=== PATIENT | male | born 1960 | race Caucasian/White ===

== ENCOUNTER 2016-07-15 10:35 | Observation (INO) ==
--- NOTE | 2016-07-15 10:49 | Emergency Department Note ---
Disposition Clinical Impression: Transient cerebral ischemia Qualifiers: Transient cerebral ischemia type: unspecified Qualified Code(s): G45.9 - Transient cerebral ischemic attack, unspecified Disposition: Admitted As Inpatient Condition: Good Time of Disposition: 12:25 Neuro HPI - General Chief Complaint: ED Neuro Symptoms/Deficit Stated Complaint: neuro symptoms Time Seen by Provider: 07/15/16 10:42 Source: family, EMS Mode of arrival: EMS Limitations: no limitations Nursing Notes Reviewed: Yes Vital Signs Reviewed: Yes - History of Present Illness HPI Narrative: 56-year-old who was at an outreach program and developed a right-sided facial weakness and some slurred speech. Symptoms have since resolved. Onset of Symptoms Date: 07/15/16 Onset of Symptoms Time: 09:00 Timing confirmed by: family member Location: speech, right face History of same: No Severity: now resolved Quality: weakness Symptoms Improving: Yes Improves with: time Worsens with: none On Anticoagulants: Yes Associated symptoms: Reports: denies other symptoms - Related Data Home Medications: Home Medications Medication Instructions Recorded Confirmed Glimepiride [Amaryl] 2 mg PO DAILY 07/15/16 07/15/16 Metformin HCl [Glucophage] 1,000 mg PO BID 07/15/16 07/15/16 Allergies/Adverse Reactions: Allergies Allergy/AdvReac Type Severity Reaction Status Date / Time No Known Allergies Allergy Verified 07/15/16 12:45 Constitutional: Denies: fever, chills, weakness, weight change Eyes: Denies: eye pain, eye discharge, vision change ENT ED: Denies: ear pain, throat pain, dental pain, hearing loss, epistaxis, congestion, dysphagia Cardiovascular: Denies: chest pain, palpitations, dyspnea on exertion, edema, syncope Respiratory: Denies: cough, dyspnea, wheezes, hemoptysis, stridor Gastrointestinal: Denies: abdominal pain, nausea, vomiting, diarrhea, constipation, hematemesis, melena, hematochezia Genitourinary: Denies: urgency, dysuria, frequency, hematuria Musculoskeletal: Denies: back pain, neck pain, arthralgia, myalgia Integumentary: Denies: rash, abrasion, lesions Neurological: Denies: headache, weakness, numbness, paresthesias, confusion, abnormal gait, vertigo Psychiatric: Denies: anxiety, depression, suicidal thoughts, homicidal thoughts , auditory hallucinations, visual hallucinations Endocrine: Denies: fatigue Hematological/Lymphatic: Denies: easy bleeding, easy bruising Allergic/Immunologic: Denies: facial swelling, urticaria Past Medical History - Past Medical History Medical history: Reports: diabetes, other Psychiatric history: Reports: other - Social History Smoking Status: Never smoker Smokeless Tobacco Status: No Alcohol use: Reports: none Drug use: Reports: none Physical Exam - General Limitations: no limitations General appearance: alert, in no apparent distress - Head Head exam: atraumatic, normocephalic, normal inspection - Eye Eye exam: Present: normal appearance, PERRL, EOMI - ENT ENT exam: normal exam, normal oropharynx, mucous membranes moist - Neck Neck exam: Present: normal inspection, full ROM, trachea midline - Chest Chest inspection: Present: normal inspection, symmetric chest wall rise - Respiratory Respiratory exam: Present: normal lung sounds bilaterally - Cardiovascular Cardiovascular exam: Present: regular rate, normal rhythm, normal heart sounds - Abdominal Exam Abdominal exam: Present: soft, Non-Tender. Absent: tenderness, distention, guarding, rebound, rigidity - Extremities Exam Extremities exam: Present: normal inspection, full ROM. Absent: tenderness, pedal edema - Expanded Lower Extremity Exam Neurovascular/Tendon exam: Absent: motor deficit, sensory deficit, tendon deficit Gait: not tested/not observed - Back Exam Back exam: Present: normal inspection, full ROM. Absent: tenderness - Neurological Exam Neurological exam: Present: alert, oriented X3. Absent: motor sensory deficit - Psychiatric Psychiatric exam: Present: normal affect, normal mood - Skin Skin exam: Present: warm, dry, intact, normal color Course Course Narrative: 56-year-old who developed slurred speech and facial weakness while at a [employer] program. Family picked him up and by the time he gets here his symptoms have resolved. It appears to have had symptoms of a TIA. - Consultations Consultation #1: Discussed with [facility] [employer] and admit. Time: 12:22 Consultation #2: Discussed with , it. Time: 12:34 Vital Signs Temperature 97.2 F L 07/15/16 10:38 Pulse Rate 107 07/15/16 10:38 Respiratory Rate 16 07/15/16 10:38 Blood Pressure 186/107 07/15/16 10:38 O2 Sat by Pulse Oximetry 97 07/15/16 10:38 Temperature 97.2 F L 01/10/17 10:38 Pulse Rate 105 07/15/16 11:53 Respiratory Rate 12 07/15/16 11:53 Blood Pressure 148/99 07/15/16 11:53 O2 Sat by Pulse Oximetry 98 07/15/16 11:53 Oxygen Delivery Oxygen Delivery Room Air Neuro Symptoms/Deficit - Lab Data Lab results reviewed: Yes I reviewed the patient's lab results. Result diagrams: 07/15/16 11:00 07/15/16 11:00 Lab Results 07/15/16 07/15/16 07/15/16 Range/Units 11:00 11:00 11:00 WBC 5.5 (4.3-11.1) K/mcL RBC 4.64 (4.19-5.50) M/mcL Hgb 13.7 (12.9-16.9) g/dL Hct 39.9 (37.5-50.1) % MCV 86.0 (83.0-100.0) fL MCH 29.5 (28.0-33.3) pg MCHC 34.3 (31.6-35.5) g/dL RDW 12.9 (11.5-14.5) % Plt Count 125 L (140-400) K/mcL MPV 10.3 (9.4-12.4) fL Immature Gran % 0.5 (0-4) % Seg Neutrophils % 71.4 % Lymphocytes % 20.6 % Monocytes % 5.8 % Eosinophils % 1.3 % Basophils % 0.4 % Neutrophils # 3.9 (1.6-8.9) K/mcL Lymphocytes # 1.1 (0.6-4.6) K/mcL Monocytes # 0.3 (0.0-1.3) K/mcL Eosinophils # 0.1 (0.0-0.6) K/mcL Basophils # 0.0 (0.0-0.2) K/mcL PT 11.4 (9.4-12.1) Seconds INR 1.1 APTT 31.4 (26.0-36.0) Seconds Sodium 138 (136-145) mEq/L Potassium 4.5 (3.5-4.5) mEq/L Chloride 109 (98-109) mEq/L Carbon Dioxide 16 L (19-29) mEq/L BUN 20 (8-26) mg/dL Creatinine 1.26 H (0.72-1.25) mg/dL Est GFR ( Amer) > 60 (> 60) Est GFR (Non-Af Amer) 59 L (> 60) BUN/Creatinine Ratio 16 (6-26) Glucose 78 (70-99) mg/dL Calculated Osmolality 287 (280-300) Calcium 9.5 (8.6-10.8) mg/dL Troponin I (0-0.03) ng/mL 07/15/16 Range/Units 11:00 WBC (4.3-11.1) K/mcL RBC (4.19-5.50) M/mcL Hgb (12.9-16.9) g/dL Hct (37.5-50.1) % MCV (83.0-100.0) fL MCH (28.0-33.3) pg MCHC (31.6-35.5) g/dL RDW (11.5-14.5) % Plt Count (140-400) K/mcL MPV (9.4-12.4) fL Immature Gran % (0-4) % Seg Neutrophils % % Lymphocytes % % Monocytes % % Eosinophils % % Basophils % % Neutrophils # (1.6-8.9) K/mcL Lymphocytes # (0.6-4.6) K/mcL Monocytes # (0.0-1.3) K/mcL Eosinophils # (0.0-0.6) K/mcL Basophils # (0.0-0.2) K/mcL PT (9.4-12.1) Seconds INR APTT (26.0-36.0) Seconds Sodium (136-145) mEq/L Potassium (3.5-4.5) mEq/L Chloride (98-109) mEq/L Carbon Dioxide (19-29) mEq/L BUN (8-26) mg/dL Creatinine (0.72-1.25) mg/dL Est GFR ( Amer) (> 60) Est GFR (Non-Af Amer) (> 60) BUN/Creatinine Ratio (6-26) Glucose (70-99) mg/dL Calculated Osmolality (280-300) Calcium (8.6-10.8) mg/dL Troponin I 0.00 (0-0.03) ng/mL - Radiology Data Radiology results reviewed: Yes I reviewed the patient's radiology results. Chest X-Ray 07/15/16 10:42 IMPRESSION: Normal chest. D/ / 07/15/2016 11:03:28 Mukund Quispe MD / [email or web address] Interpreting Provider: Mukund Quispe MD Head CT 07/15/16 10:43 IMPRESSION: No acute intracranial abnormality. Acute or chronic right mastoid disease D/ / Eulogio Huff MD / Eulogio Huff MD Interpreting Provider: Eulogio Huff MD - EKG Data EKG attestation: Yes I reviewed and interpreted this EKG. EKG shows normal: sinus rhythm Rate: normal Rhythm: NSR Interpretation: nonspecific ST-T wave changes NIH Stroke Scale - Level of Consciousness LOC: Alert - LOC Questions LOC Questions: Answers both correctly - LOC Commands LOC Commands: Performs both correctly - Best Gaze Best Gaze: Normal - Visual Visual: No visual loss - Facial Palsy Facial Palsy: Normal - Motor Arms Motor Arm-Left: No drift for 10 seconds Motor Arm-Right: No drift for 10 seconds - Motor Legs Motor Leg-Left: No drift for 5 seconds Motor Leg-Right: No drift for 5 seconds - Limb Ataxia Limb Ataxia: Normal, No Ataxia - Sensory Sensory: Normal - Best Language Best Language: No aphasia - Dysarthria Dysarthria: Normal - Extinction and Inattention Extinction and Inattention: Normal - NIHSS Total Score NIHSS Total Score: 0 TPA Checklist - Eligibilty for IV tPA 1. LKW equal to or less than 4.5 hours be before treatment: Yes 2. Clinical diagnosis of ischemic stroke causing deficit: No - LKW: 3-4.5 hrs Add. Contraindications Patient/family understanding: The patient/family members have been counseled and understood the risk, benefit , and alternatives of treatment.
[2016-07-15 11:08] LABS: Basophils % 0.4 %; Eosinophils # 0.1 K/mcL (0.0-0.6); Eosinophils % 1.3 %; Hematocrit 39.9 % (37.5-50.1); Hemoglobin 13.7 g/dL (12.9-16.9); Immature Granulocytes % 0.5 % (0-4); Lymphocytes # 1.1 K/mcL (0.6-4.6); Lymphocytes % 20.6 %; Mean Corpuscular HGB Conc 34.3 g/dL (31.6-35.5); Mean Corpuscular Hemoglobin 29.5 pg (28.0-33.3); Mean Platelet Volume 10.3 fL (9.4-12.4); Monocytes # 0.3 K/mcL (0.0-1.3); Monocytes % 5.8 %; Neutrophils # 3.9 K/mcL (1.6-8.9); Platelet Count 125 K/mcL (140-400); Red Blood Count 4.64 M/mcL (4.19-5.50); Red Cell Distribution Width 12.9 % (11.5-14.5); Segmented Neutrophils % 71.4 %
[2016-07-15 11:12] LABS: INR 1.1; Prothrombin Time 11.4 Seconds (9.4-12.1)
[2016-07-15 11:15] LABS: Activated Partial Thrombo Time 31.4 Seconds (26.0-36.0)
[2016-07-15 11:20] LABS: BUN/Creatinine Ratio 16 (6-26); Blood Urea Nitrogen 20 mg/dL (8-26); Calcium 9.5 mg/dL (8.6-10.8); Carbon Dioxide 16 mEq/L (19-29); Chloride 109 mEq/L (98-109); Glucose 78 mg/dL (70-99); Osmolality,Calculated 287 (280-300); Potassium 4.5 mEq/L (3.5-4.5); Sodium 138 mEq/L (136-145); eGFR For African Americans > 60 (> 60); eGFR For Non-African Americans 59 (> 60)
[2016-07-15] MEDS ORDERED: Aspirin 81 MG TAB.CHEW PO STA (12:20)
--- NOTE | 2016-07-15 13:28 | Internal Med History&Physical ---
Date of Encounter: 07/15/16 Time of Encounter: 13:10 Assessment and Plan (1) Transient cerebral ischemia Current visit: Yes Status: Acute MRI Aspirin 81mg po daily Lipitor 40mg po daily ECHO Carotid Dopplers Fall Precautions NIHSS q [address] appraiser Qualifiers: Transient cerebral ischemia type: unspecified Qualified Code(s): G45.9 - Transient cerebral ischemic attack, unspecified (2) Hypertensive urgency Current visit: Yes Status: Acute Family denies past history of hypertension, pt takes no medications for HTN BP trends high throughout ED visit Hydralazine 10mg po q 4-6h prn to achieve systolic BP < 180mgHg VS q4-6h (3) Diabetes mellitus Current visit: Yes Status: Chronic Pt with Type II DM, treated with oral medications. Family denies complications or symptoms of hypo/hyperglycemia. ADA Diet Sliding Scale insulin coverage Accucheck AC/HS Qualifiers: Diabetes mellitus type: type 2 Diabetes mellitus complication status: without complication Diabetes mellitus fdc insulin use: without intermodal dispatcher use Qualified Code(s): E11.9 - Type 2 diabetes mellitus without complications Internal Medicine - H&P: HPI Chief complaint: Neuro symptoms Admitted From: Home Plans for Post Hospital Care: Home History of present illness: Mr. Schmidt is a 56 year old male who presents to ED from adult workshop with c/o L facial droop and slurred speech while there. Witnesses to episode state that pt had L facial droop and that speech was slurred prior to EMS arrival. Per family, pt was back to baseline for him on their arrival, and remains at his normal during exam. Pt denies [place], blurred vision, chest pain, or fall/injury at time of incident. Family at , none present at time of episode, but states that they were told of above symptoms and deny history of same. Past Med Surg Social Fam HX - Past Medical History Medical history: diabetes, other Psychiatric history: other - Social History Smoking Status: Never smoker Smokeless Tobacco Status: No Alcohol use: none Drug use: none Internal Medicine - H&P: Meds Metformin HCl [Glucophage] 1,000 mg PO BID 07/15/16 [History] RX: Glimepiride [Amaryl] 2 mg PO DAILY 07/15/16 [History] Allergies No Known Allergies Allergy (Verified 07/15/16 12:45) All Systems PM: A 10-system review of systems was performed and is negative for pertinent findings except as documented above in the HPI. Review of systems: Due to pt's normal mental status, some information obtained from family who is familiar with pt. Pt answers no to most questions and does not answer questions appropriately, instead talks about his stuffed horse Trigger. - Constitutional Constitutional: no weakness - EENT Ears: no decreased hearing, no ear pain Nose, mouth and throat: no mouth pain - Cardiovascular Cardiovascular ROS IM: no chest pain, no edema - Respiratory Respiratory: no cough, no chest congestion - Gastrointestinal Gastrointestinal: no abdominal pain, no nausea, no vomiting - Musculoskeletal Musculoskeletal ROS IM: no neck pain - Integumentary Integumentary IM: no new lesions, no rash, no unusual bruising - Neurological Neurological ROS: abnormal speech, no dizziness, no headache(s) - Constitutional Vitals: Temp Pulse Resp BP Pulse Ox 97.2 F L 105 12 148/99 98 07/15/16 10:38 07/15/16 11:53 07/15/16 11:53 07/15/16 11:53 07/15/16 11:53 General appearance: Present: A&O X 2, pleasant, no acute distress Exam: Pt alert, oriented to name only. States that he was at "school" prior to arrival. - Head Head exam: Present: normal inspection - Eye Eye exam: Present: PERRL - ENT ENT exam: Present: mucous membranes moist - Neck Neck exam general surgery: Present: full ROM, trachea midline - Respiratory Respiratory exam: Absent: rales, rhonchi, wheezes - Cardiovascular Cardiovascular exam: Present: tachycardia. Absent: diastolic murmur, JVD Additional comments: Pt on right of way appraiser ,NSR. - GI/Abdominal GI/Abdominal exam: Present: firm, normal bowel sounds, soft. Absent: tenderness - Extremities Exam Extremities exam: Present: normal inspection, radial pulses palpable and symetrical. Absent: pedal edema - Neurological Exam Neurological exam: Present: alert, normal gait, strengths equal and symetr throughout, facial droop Additional comments: Slight L facial droop noted at mouth. Pt follows commands and is able to stand with assistance from bed, gait steady. - Skin Skin exam: Present: intact, normal color, warm. Absent: diaphoretic Internal Med - H&P Results - Labs CBC & Chem 7: 07/15/16 11:00 07/15/16 11:00
[2016-07-15] MEDS ORDERED: Dextrose Gel 15 GM PO PRN ×2 (14:13)
[2016-07-15] MEDS ORDERED: *HR* Dextrose 50 % in Water (Syg) 50 ML SYRINGE IVP PRN (14:13)
[2016-07-15] MEDS ORDERED: D5% in Water 1,000 ML IV PRN (14:13)
[2016-07-15] MEDS ORDERED: hydrALAZINE 10 MG TABLET PO PRN (14:19)
[2016-07-15] MEDS: Insulin LISPRO 300 UNITS/3 ML VIAL SQ SCH (17:37)
[2016-07-15] MEDS ORDERED: Insulin LISPRO 300 UNITS/3 ML VIAL SQ SCH (21:00)
[2016-07-16 04:59] LABS: Basophils % 0.3 %; Eosinophils # 0.1 K/mcL (0.0-0.6); Eosinophils % 1.7 %; Hematocrit 39.4 % (37.5-50.1); Hemoglobin 13.5 g/dL (12.9-16.9); Immature Granulocytes % 0.5 % (0-4); Lymphocytes # 1.8 K/mcL (0.6-4.6); Lymphocytes % 27.5 %; Mean Corpuscular HGB Conc 34.3 g/dL (31.6-35.5); Mean Corpuscular Hemoglobin 29.9 pg (28.0-33.3); Mean Corpuscular Volume 87.4 fL (83.0-100.0); Mean Platelet Volume 10.8 fL (9.4-12.4); Monocytes # 0.5 K/mcL (0.0-1.3); Monocytes % 8.2 %; Platelet Count 150 K/mcL (140-400); Red Blood Count 4.51 M/mcL (4.19-5.50); Red Cell Distribution Width 12.8 % (11.5-14.5); Segmented Neutrophils % 61.8 %
[2016-07-16 05:15] LABS: Alanine Aminotransferase 25 Units/L (0-55); Albumin 3.9 g/dL (3.5-5.0); Albumin/Globulin Ratio 1.2 (1.1-2.2); Alkaline Phosphatase 60 Units/L (38-126); Aspartate Amino Transferase 18 Units/L (5-34); BUN/Creatinine Ratio 17 (6-26); Bilirubin,Direct 0.2 mg/dL (0.0-0.5); Bilirubin,Indirect 0.5 mg/dL (0.0-1.2); Bilirubin,Total 0.7 mg/dL (0.2-1.2); Blood Urea Nitrogen 22 mg/dL (8-26); Calcium 9.7 mg/dL (8.6-10.8); Carbon Dioxide 22 mEq/L (19-29); Chloride 108 mEq/L (98-109); Globulin 3.3 g/dL (2.4-3.5); Glucose 119 mg/dL (70-99); Osmolality,Calculated 294 (280-300); Potassium 4.2 mEq/L (3.5-4.5); Sodium 140 mEq/L (136-145); Total Protein 7.2 g/dL (6.0-8.3); eGFR For African Americans > 60 (> 60); eGFR For Non-African Americans 57 (> 60)
[2016-07-16 07:39] VITALS: BP 132/88
[2016-07-16] MEDS: Insulin LISPRO 300 UNITS/3 ML VIAL SQ SCH ×2 (07:44→12:34)
[2016-07-16] MEDS ORDERED: Aspirin 81 MG TAB.CHEW PO SCH (09:00)
--- NOTE | 2016-07-16 15:26 | ECHO - Doppler Report ---
Echocardiogram Name: Ag Schmidt Date of Study: 07/16/2016 Date: 1960 Ht: 72.0 in Medical Record#: [id number] Age: 56 Wt: 230.0 lb Gender: Male BSA: 2.26 Order #: [id number] Location: [facility] Room #: [id number] Reading Physician: Gauri Linares DO Fishing Instructor: Fazal Panda RN Ordering Physician: Jazlyn Collado CNP Primary Physician: Abbe Mahoney DO Indications: Transient Ischemic Attack Impressions: LVEF 60%. Mild concentric hypertrophy of the left ventricle. There is evidence of mild diastolic dysfunction of the left ventricle. Normal right ventricular size and function. Mild mitral regurgitation. No pulmonary hypertension. There is no evidence of a PFO with agitated saline contrast. Left Ventricular Wall Motion: Rest Echo Findings All wall segments showed normal motion. Findings: Study Quality * Technically sub-optimal due to body habitus. ECG Findings * Normal sinus rhythm. Left Ventricle * LVEF 60%. * Mild concentric left ventricular hypertrophy. * Mild left ventricular diastolic dysfunction. Aortic Valve * Aortic valve not well visualized. * No aortic stenosis. * Trace aortic regurgitation. Mitral Valve * Mildly calcified mitral valve leaflets. * No mitral stenosis. * Mild mitral annular calcification * Mild mitral regurgitation. Tricuspid Valve * Tricuspid valve not well visualized. * Trace tricuspid regurgitation. Pulmonic Valve * Pulmonic valve is not well visualized. * No pulmonic stenosis. * No pulmonic regurgitation. Pulmonary Artery * Pulmonary artery not well visualized. Right Ventricle * Normal right ventricular structure and function. Left Atrium * Normal left atrial size. Right Atrium * Normal right atrial size. IVC * The IVC is not well evaluated. Pericardium * There is no pericardial effusion present. Interatrial Septum * No evidence of PFO with agitated saline contrast. Aorta * Normally sized aortic root. History Contrast: Agitated saline 20 ml. Measurements: BP: 134/ 82 2D Normal Values IVSd: 1.30 cm 0.6 - 1.0 cm LVIDd: 3.90 cm 3.7 - 5.6 cm LVPWd: 1.30 cm 0.6 - 1.1 cm LVIDs: 2.30 cm 1.5 - 3.6 cm LA: 3.90 cm 2.0 - 4.0cm %FS: 41.00 cm >25 % LVOT Diam: 2.00 cm LA volume: 63 Mitral Valve Peak E:.80 m/sec Peak A:.82 m/sec E/A Ratio:1 Peak E' Lat Larry:9.85 cm/s Peak E' Med Larry:6.24 cm/s E/E' Lat Ratio:8.1 E/E' Med Ratio:12.8 Aortic Valve AI pressure Half-time: 456.00 msec Tricuspid Valve TV Regurg Peak Grad: 26.00mmHg TV Regurg Peak Larry: 2.54m/sec Updated by Gauri Linares on 07/16/2016 3:20:29 PM electronically signed on 07/16/2016 3:21:00 PM with status of Final Wall Motion Mc: 1=Normal, 2=Hypokinesis, 3=Akinesis, 4=Dyskinesis, 5=Aneurysmal, 6=Hyperkinetic, X=Not Visualized (Blank)=Missing
--- NOTE | 2016-07-16 15:34 | Discharge Summary ---
Date of Encounter: 07/16/16 Time of Encounter: 13:00 - Discharge Diagnosis (1) Transient cerebral ischemia Priority: Primary Status: Acute Comments: Asymptomatic on day of discharge. Chest x-ray negative. Head CT negative. Brain MRI negative. Echocardiogram unremarkable. Hypertensive urgency resolved. Follow-up outpatient. Qualifiers: Transient cerebral ischemia type: unspecified Qualified Code(s): G45.9 - Transient cerebral ischemic attack, unspecified (2) Hypertensive urgency Priority: Primary Status: Resolved Comments: Patient does not have a history of hypertension according to his family. Metoprolol added to his regimen, normotensive on day of discharge. Recommended the blood pressure checks at home and follow up outpatient. (3) Diabetes mellitus Priority: Secondary Status: Chronic Comments: Controlled with recent A1c of 5.8%. Recommend continued follow up outpatient. Qualifiers: Diabetes mellitus type: type 2 Diabetes mellitus complication status: without complication Diabetes mellitus alf insulin use: without alf use Qualified Code(s): E11.9 - Type 2 diabetes mellitus without complications (4) Cognitive developmental delay Priority: Secondary Status: Chronic Comments: Consistent with his baseline. Follow-up outpatient. Substantial familial support - Discharge Medications Prescriptions: Aspirin 81 mg PO DAILY #30 tab.chew Metoprolol [Lopressor] 25 mg PO BID #60 tablet Home Medications: Glimepiride [Amaryl] 2 mg PO DAILY 07/15/16 [History] Metformin HCl [Glucophage] 1,000 mg PO BID 07/15/16 [History] Aspirin 81 mg PO DAILY #30 tab.chew 07/16/16 [Rx] Metoprolol [Lopressor] 25 mg PO BID #60 tablet 07/16/16 [Rx] Allergies/Adverse Reactions: Allergies No Known Allergies Allergy (Verified 07/15/16 12:45) Procedures/tests Complete & Pending: Procedures Performed prior 72 hours Category Date Time Status MR head/brain wo con [MR] Routine MRI 07/15/16 14:10 Completed ECG 12 lead ECG [ECG] Stat Y 07/15/16 13:24 Ordered EV echocardiogram Routine Y 07/16/16 14:31 Completed Date of admission: 07/15/16 13:20 Primary care physician: Kvng Mahoney Consults: 07/15/16 15:37 Consult to Museum Librarian [CONS] Routine Reason for SW Consult: D/C planning for Home health 07/16/16 08:28 Consult to Occupational Therapy [CONS] Routine Comment: Evaluate, develop and implement POC Consult to Physical Therapy [CONS] Routine Comment: Evaluate, develop and implement POC Discharging clinician: Estefany Tan Anticipated date of discharge: 07/16/16 - Patient Status Disposition: Home, Self-Care Condition: Good Functional capacity at discharge: independent ambulation Overall status at discharge: patient is back to baseline - Discharge Instructions Follow Up With: Kvng Mahoney DO [Primary Care Provider] - Additional Instructions: Follow-up with primary care provider in one to 2 weeks, check blood pressure daily and keep a log - Diet and Activity Activity: increase activity as tolerated Diet: diabetic diet, low fat, low cholesterol, low salt diet Hospital course: Mr. Schmidt is a 56 year old male with past medical history of developmental delay and diabetes. Patient presented to the emergency department from an adult daycare chief complaint of left-sided facial drooping and slurred speech. Patient was back to his baseline prior to arrival at the emergency department. Patient denied headache, blurred vision, chest pain, fall or injury at the time of the incident. Workup in the emergency department unremarkable except for accelerated hypertension with an initial blood pressure of 186/107. Patient does not have a history of hypertension. Patient was admitted to the hospitalist service for further evaluation and management. Chest x-ray negative. Head CT negative. Brain MRI negative for acute processes. Echocardiogram unremarkable with ejection fraction of 60%. Patient remained asymptomatic and back at his baseline throughout this admission. He was started on metoprolol for his blood pressure and he was normotensive on day of discharge. Likely diagnosis TIA with resolution. Recommend daily blood pressure checks at home and following up outpatient. He was discharged home in stable condition. ITS Impressions Chest X-Ray 07/15/16 10:42 IMPRESSION: Normal chest. D/ / 07/15/2016 11:03:28 Mukund Quispe MD / dayna Interpreting Provider: Mukund Quispe MD Head CT 07/15/16 10:43 IMPRESSION: No acute intracranial abnormality. Acute or chronic right mastoid disease D/ / Eulogio Huff MD / Eulogio Huff MD Interpreting Provider: Eulogio Huff MD Brain MRI 07/15/16 14:10 IMPRESSION: No acute infarct. D/ / Gerardo Chaparro MD / Gerardo Chaparro MD Interpreting Provider: Gerardo Chaparro MD Echocardiogram impressions: LVEF 60%. Moderate concentric left ventricular hypertrophy. There is evidence of mild diastolic dysfunction of the left ventricle. Normal right ventricular size and function. Mild mitral regurgitation. No pulmonary hypertension. There is no evidence of PFO with agitated saline contrast. - Time Spent with Patient Total time spent providing and/or coordinating discharge services: - Constitutional Vitals: Temp Pulse Resp BP Pulse Ox 97.5 F L 79 16 132/88 99 07/16/16 07:37 07/16/16 07:37 07/16/16 07:37 07/16/16 07:37 07/16/16 07:37 General appearance: Present: A&O X 2, pleasant, no acute distress, answers questions appropriately (Simple yes or no questions) - Head Head exam: Present: atraumatic, normocephalic - Eye Eye exam: Present: PERRL, conjuntiva pink, sclera anicteric Pupils: Present: PERRL - Neck Neck exam general surgery: Present: supple, trachea midline. Absent: lymphadenopathy - Respiratory Respiratory exam: Present: CTAB. Absent: accessory muscle use, rales, respiratory distress, rhonchi, wheezes - Cardiovascular Cardiovascular exam: Present: RRR, +S1, +S2. Absent: diastolic murmur, gallop, rubs, systolic murmur - GI/Abdominal GI/Abdominal exam: Present: normal bowel sounds, soft, no peritoneal signs. Absent: distended, tenderness - Extremities Exam Extremities exam: Present: warm, radial pulses palpable and symetrical. Absent : calf tenderness, cyanotic, pedal edema - Neurological Exam Neurological exam: Present: alert, CN II-XII intact, normal gait, no focal deficits, strengths equal and symetr throughout. Absent: pronater drift, facial droop, speech deficit - Skin Skin exam: Present: dry, intact, normal color, warm
== END 2016-07-16 16:53 | disposition home or self-care (01) ==
LOC: EMEROO 10:35 → 3BNU 10:35
PROVIDERS: ADMIT Nurse Practitioner Family; ATTEND Nurse Practitioner Family

== ENCOUNTER 2020-12-07 12:14 | Inpatient (IN) ==
[2020-12-07] MEDS ORDERED: Dextrose Gel 15 GM/37.5 ML TUBE PO PRN ×2 (15:47)
[2020-12-07] MEDS ORDERED: D5% in Water 1,000 ML IVC PRN (15:47)
[2020-12-07] MEDS ORDERED: *HR* Dextrose 50 % in Water (Vial) 50 ML VIAL IVP PRN (15:47)
[2020-12-07] MEDS ORDERED: Naloxone 0.4 MG/ML INJ IVP PRN (15:57)
[2020-12-07] MEDS ORDERED: Ondansetron 4 MG/2 ML VIAL IVP PRN (15:57)
[2020-12-07 16:56] LABS: Alanine Aminotransferase 734 Units/L (7-52); Albumin 3.9 g/dL (3.5-5.7); Albumin/Globulin Ratio 1.5 (1.1-2.2); Alkaline Phosphatase 253 Units/L (34-104); Aspartate Amino Transferase 510 Units/L (13-39); BUN/Creatinine Ratio 19 (6-26); Bilirubin,Total 2.1 mg/dL (0.3-1.0); Blood Urea Nitrogen 27 mg/dL (8-23); Calcium 9.3 mg/dL (8.6-10.3); Carbon Dioxide 23 mEq/L (23-29); Chloride 106 mEq/L (98-107); Globulin 2.6 g/dL (2.4-3.5); Glucose 172 mg/dL (70-105); Osmolality,Calculated 293 (280-300); Potassium 4.5 mEq/L (3.5-5.1); Sodium 137 mEq/L (136-145); Total Protein 6.5 g/dL (6.4-8.9); eGFR For African Americans > 60 (> 60); eGFR For Non-African Americans 50 (> 60)
[2020-12-07] MEDS: Insulin LISPRO 300 UNITS/3 ML VIAL SUBQ SCH ×2 (18:32→20:12)
[2020-12-07] MEDS: Piperacillin/Tazobactam 3.375 GM in 0.9 % Sodium Chloride Mini Bag 100 ML IVPB SCH ×2 (18:32→23:41)
[2020-12-07] MEDS: 0.9 % Sodium Chloride 1,000 ML IVC SCH (18:34)
[2020-12-08] MEDS: 0.9 % Sodium Chloride 1,000 ML IVC SCH (04:45)
[2020-12-08] MEDS: Insulin LISPRO 300 UNITS/3 ML VIAL SUBQ SCH ×4 (08:35→21:28)
[2020-12-08] MEDS: Aspirin 81 MG TAB.CHEW PO SCH (08:45)
[2020-12-08] MEDS: risperiDONE 0.25 MG TABLET PO SCH ×2 (08:45→21:28)
[2020-12-08] MEDS: Piperacillin/Tazobactam 3.375 GM in 0.9 % Sodium Chloride Mini Bag 100 ML IVPB SCH ×2 (08:45→17:43)
[2020-12-08 10:15] LABS: Basophils % 0.2 %; Eosinophils % 0.7 %; Hematocrit 31.9 % (37.5-50.1); Hemoglobin 10.8 g/dL (12.9-16.9); Immature Granulocytes % 0.2 % (0-4); Lymphocytes # 0.9 K/mcL (0.6-4.6); Lymphocytes % 14.6 %; Mean Corpuscular HGB Conc 33.9 g/dL (31.6-35.5); Mean Corpuscular Hemoglobin 29.6 pg (28.0-33.3); Mean Corpuscular Volume 87.4 fL (83.0-100.0); Monocytes # 0.5 K/mcL (0.0-1.3); Monocytes % 7.6 %; Neutrophils # 4.5 K/mcL (1.6-8.9); Platelet Count 93 K/mcL (140-400); Red Blood Count 3.65 M/mcL (4.19-5.50); Red Cell Distribution Width 12.6 % (11.5-14.5); Segmented Neutrophils % 76.7 %; White Blood Count 5.9 K/mcL (4.3-11.1)
[2020-12-08 10:22] LABS: INR 1.2; Prothrombin Time 13.4 Seconds (9.4-12.1)
[2020-12-08 10:35] LABS: Alanine Aminotransferase 498 Units/L (7-52); Albumin 3.7 g/dL (3.5-5.7); Albumin/Globulin Ratio 1.4 (1.1-2.2); Alkaline Phosphatase 226 Units/L (34-104); Aspartate Amino Transferase 238 Units/L (13-39); BUN/Creatinine Ratio 18 (6-26); Bilirubin,Total 1.1 mg/dL (0.3-1.0); Blood Urea Nitrogen 23 mg/dL (8-23); Calcium 9.1 mg/dL (8.6-10.3); Carbon Dioxide 24 mEq/L (23-29); Chloride 108 mEq/L (98-107); Globulin 2.6 g/dL (2.4-3.5); Glucose 151 mg/dL (70-105); Osmolality,Calculated 297 (280-300); Potassium 4.2 mEq/L (3.5-5.1); Sodium 140 mEq/L (136-145); Total Protein 6.3 g/dL (6.4-8.9); eGFR For African Americans > 60 (> 60); eGFR For Non-African Americans 57 (> 60)
[2020-12-08] MEDS ORDERED: Ringers Solution, Lactated 1,000 ML IVC SCH (15:30)
[2020-12-08] MEDS ORDERED: Indomethacin 50 MG SUPP.RECT RC ONE (15:34)
[2020-12-08] MEDS ORDERED: *HR* EPINEPHrine 1 MG/10 ML SYRINGE INTRATRACH PRN (16:59)
[2020-12-08] MEDS ORDERED: *HR* FentaNYL (PF) 100 MCG/2 ML VIAL IVP PRN (17:06)
[2020-12-08] MEDS: carvediloL 25 MG TABLET PO SCH (17:43)
[2020-12-08] MEDS ORDERED: Divalproex (12 HR) 250 MG TABLET PO SCH (21:00)
[2020-12-08] MEDS ORDERED: Famotidine 20 MG TABLET PO SCH (21:00)
[2020-12-09] MEDS: Piperacillin/Tazobactam 3.375 GM in 0.9 % Sodium Chloride Mini Bag 100 ML IVPB SCH ×4 (00:51→23:33)
[2020-12-09] MEDS: Insulin LISPRO 300 UNITS/3 ML VIAL SUBQ SCH ×4 (07:16→20:45)
[2020-12-09] MEDS ORDERED: Lidocaine HCL 4 ML Topical Solution (Laryng-O-Jet Kit Sterile Pak) TP ONE (07:24)
[2020-12-09] MEDS: carvediloL 25 MG TABLET PO SCH ×2 (07:24→17:48)
[2020-12-09] MEDS ORDERED: *HR* HYDROmorphone PF 0.5 MG/0.5 ML SYRINGE IVP PRN ×2 (07:24→11:09)
[2020-12-09] MEDS: Aspirin 81 MG TAB.CHEW PO SCH (07:24)
[2020-12-09] MEDS: risperiDONE 0.25 MG TABLET PO SCH ×2 (07:24→20:43)
[2020-12-09] MEDS ORDERED: *HR* FentaNYL (PF) 100 MCG/2 ML VIAL ONE (07:25)
[2020-12-09] MEDS ORDERED: *HR* Midazolam HCl 2 MG/2 ML VIAL ONE (07:25)
[2020-12-09] MEDS ORDERED: *HR* Propofol 200 MG/20 ML VIAL IVP ONE (07:25)
[2020-12-09 07:50] LABS: Hematocrit 30.1 % (37.5-50.1)
[2020-12-09 07:52] LABS: Basophils % 0.4 %; Eosinophils # 0.1 K/mcL (0.0-0.6); Eosinophils % 2.2 %; Immature Granulocytes % 0.5 % (0-4); Lymphocytes % 17.7 %; Mean Corpuscular HGB Conc 33.2 g/dL (31.6-35.5); Mean Corpuscular Hemoglobin 29.2 pg (28.0-33.3); Mean Corpuscular Volume 87.8 fL (83.0-100.0); Monocytes # 0.6 K/mcL (0.0-1.3); Monocytes % 10.3 %; Red Blood Count 3.43 M/mcL (4.19-5.50); Red Cell Distribution Width 12.6 % (11.5-14.5); Segmented Neutrophils % 68.9 %; White Blood Count 5.6 K/mcL (4.3-11.1)
[2020-12-09 07:55] LABS: INR 1.1; Prothrombin Time 12.7 Seconds (9.4-12.1)
[2020-12-09 08:02] LABS: Neutrophils # 3.9 K/mcL (1.6-8.9); Platelet Count 89 K/mcL (140-400)
[2020-12-09 08:11] LABS: Alanine Aminotransferase 313 Units/L (7-52); Albumin 3.5 g/dL (3.5-5.7); Albumin/Globulin Ratio 1.4 (1.1-2.2); Alkaline Phosphatase 184 Units/L (34-104); Aspartate Amino Transferase 87 Units/L (13-39); BUN/Creatinine Ratio 18 (6-26); Bilirubin,Total 0.8 mg/dL (0.3-1.0); Blood Urea Nitrogen 20 mg/dL (8-23); Carbon Dioxide 24 mEq/L (23-29); Chloride 108 mEq/L (98-107); Globulin 2.5 g/dL (2.4-3.5); Glucose 115 mg/dL (70-105); Osmolality,Calculated 292 (280-300); Potassium 3.9 mEq/L (3.5-5.1); Sodium 139 mEq/L (136-145); eGFR For African Americans > 60 (> 60); eGFR For Non-African Americans > 60 (> 60)
[2020-12-09] MEDS ORDERED: *HR* HYDROMORPHONE 2 MG/ML VIAL ONE (09:16)
[2020-12-09] MEDS ORDERED: *HR* FentaNYL (PF) 100 MCG/2 ML VIAL IVP PRN (11:09)
[2020-12-09] MEDS ORDERED: Ondansetron 4 MG/2 ML VIAL IVP PRN (11:09)
[2020-12-09] MEDS ORDERED: *HR* Dextrose 50 % in Water (Vial) 50 ML VIAL IVP PRN (11:09)
[2020-12-09] MEDS ORDERED: D5% in Water 1,000 ML IVC PRN (11:09)
[2020-12-09] MEDS ORDERED: Ringers Solution, Lactated 1,000 ML IVC SCH (11:09)
[2020-12-09] MEDS ORDERED: Dextrose Gel 15 GM/37.5 ML TUBE PO PRN ×2 (11:09)
[2020-12-09] MEDS ORDERED: Naloxone 0.4 MG/ML INJ IVP PRN (11:09)
[2020-12-09] MEDS ORDERED: *HR* EPINEPHrine 1 MG/10 ML SYRINGE INTRATRACH PRN (11:09)
[2020-12-09] MEDS: Famotidine 20 MG TABLET PO SCH (20:44)
[2020-12-09] MEDS: Divalproex (12 HR) 250 MG TABLET PO SCH (20:44)
[2020-12-10 02:26] LABS: Basophils % 0.1 %; Eosinophils % 0.1 %; Hemoglobin 9.2 g/dL (12.9-16.9); Immature Granulocytes % 0.2 % (0-4); Lymphocytes # 0.9 K/mcL (0.6-4.6); Lymphocytes % 11.6 %; Mean Corpuscular HGB Conc 32.9 g/dL (31.6-35.5); Mean Corpuscular Hemoglobin 28.8 pg (28.0-33.3); Mean Corpuscular Volume 87.8 fL (83.0-100.0); Monocytes # 0.8 K/mcL (0.0-1.3); Monocytes % 9.6 %; Neutrophils # 6.3 K/mcL (1.6-8.9); Platelet Count 101 K/mcL (140-400); Red Blood Count 3.19 M/mcL (4.19-5.50); Red Cell Distribution Width 12.7 % (11.5-14.5); Segmented Neutrophils % 78.4 %
[2020-12-10 02:41] LABS: Alanine Aminotransferase 220 Units/L (7-52); Albumin 3.1 g/dL (3.5-5.7); Albumin/Globulin Ratio 1.3 (1.1-2.2); Alkaline Phosphatase 146 Units/L (34-104); Aspartate Amino Transferase 50 Units/L (13-39); BUN/Creatinine Ratio 22 (6-26); Bilirubin,Total 0.7 mg/dL (0.3-1.0); Blood Urea Nitrogen 29 mg/dL (8-23); Calcium 8.6 mg/dL (8.6-10.3); Carbon Dioxide 23 mEq/L (23-29); Chloride 107 mEq/L (98-107); Globulin 2.4 g/dL (2.4-3.5); Glucose 132 mg/dL (70-105); Osmolality,Calculated 294 (280-300); Potassium 4.1 mEq/L (3.5-5.1); Sodium 138 mEq/L (136-145); Total Protein 5.5 g/dL (6.4-8.9); eGFR For African Americans > 60 (> 60); eGFR For Non-African Americans 54 (> 60)
[2020-12-10] MEDS: Insulin LISPRO 300 UNITS/3 ML VIAL SUBQ SCH ×4 (07:10→22:02)
[2020-12-10] MEDS: carvediloL 25 MG TABLET PO SCH ×2 (07:53→16:29)
[2020-12-10] MEDS: Aspirin 81 MG TAB.CHEW PO SCH (07:53)
[2020-12-10] MEDS: risperiDONE 0.25 MG TABLET PO SCH ×2 (07:53→22:02)
[2020-12-10] MEDS: Piperacillin/Tazobactam 3.375 GM in 0.9 % Sodium Chloride Mini Bag 100 ML IVPB SCH ×3 (07:53→23:48)
[2020-12-10] MEDS: Famotidine 20 MG TABLET PO SCH (22:01)
[2020-12-10] MEDS: Divalproex (12 HR) 250 MG TABLET PO SCH (22:02)
[2020-12-11 05:00] LABS: Hemoglobin 9.1 g/dL (12.9-16.9); Red Cell Distribution Width 12.8 % (11.5-14.5)
[2020-12-11 05:01] LABS: Hematocrit 27.7 % (37.5-50.1); Immature Platelets 4.5 % (1.1-6.1); Mean Corpuscular HGB Conc 32.9 g/dL (31.6-35.5); Mean Corpuscular Volume 88.2 fL (83.0-100.0); Mean Platelet Volume 11.2 fL (9.4-12.4); Red Blood Count 3.14 M/mcL (4.19-5.50); White Blood Count 4.3 K/mcL (4.3-11.1)
[2020-12-11 05:19] LABS: Alanine Aminotransferase 240 Units/L (7-52); Albumin 3.2 g/dL (3.5-5.7); Albumin/Globulin Ratio 1.2 (1.1-2.2); Alkaline Phosphatase 225 Units/L (34-104); Aspartate Amino Transferase 149 Units/L (13-39); BUN/Creatinine Ratio 20 (6-26); Bilirubin,Direct 1.5 mg/dL (0.0-0.2); Bilirubin,Indirect 0.6 mg/dL (0.0-1.0); Bilirubin,Total 2.1 mg/dL (0.3-1.0); Blood Urea Nitrogen 27 mg/dL (8-23); Calcium 8.8 mg/dL (8.6-10.3); Carbon Dioxide 23 mEq/L (23-29); Chloride 108 mEq/L (98-107); Globulin 2.6 g/dL (2.4-3.5); Glucose 145 mg/dL (70-105); Magnesium 1.9 mg/dL (1.6-2.6); Osmolality,Calculated 294 (280-300); Sodium 138 mEq/L (136-145); Total Protein 5.8 g/dL (6.4-8.9); eGFR For African Americans > 60 (> 60); eGFR For Non-African Americans 54 (> 60)
[2020-12-11] MEDS: Piperacillin/Tazobactam 3.375 GM in 0.9 % Sodium Chloride Mini Bag 100 ML IVPB SCH ×2 (08:02→16:59)
[2020-12-11] MEDS: carvediloL 25 MG TABLET PO SCH ×2 (08:02→19:54)
[2020-12-11] MEDS: risperiDONE 0.25 MG TABLET PO SCH ×2 (08:02→19:54)
[2020-12-11] MEDS: Aspirin 81 MG TAB.CHEW PO SCH (08:02)
[2020-12-11] MEDS: Insulin LISPRO 300 UNITS/3 ML VIAL SUBQ SCH ×4 (08:03→19:55)
[2020-12-11] MEDS ORDERED: *HR* LORazepam 2 MG/ML VIAL IVP ONE (12:24)
[2020-12-11] MEDS: Famotidine 20 MG TABLET PO SCH (19:54)
[2020-12-11] MEDS: Divalproex (12 HR) 250 MG TABLET PO SCH (19:55)
[2020-12-12] MEDS: Piperacillin/Tazobactam 3.375 GM in 0.9 % Sodium Chloride Mini Bag 100 ML IVPB SCH ×2 (00:28→08:06)
[2020-12-12 06:05] LABS: Red Cell Distribution Width 13.1 % (11.5-14.5)
[2020-12-12 06:07] LABS: Hematocrit 26.7 % (37.5-50.1); Hemoglobin 8.7 g/dL (12.9-16.9); Immature Platelets 5.9 % (1.1-6.1); Mean Corpuscular HGB Conc 32.6 g/dL (31.6-35.5); Mean Corpuscular Hemoglobin 28.9 pg (28.0-33.3); Mean Corpuscular Volume 88.7 fL (83.0-100.0); Mean Platelet Volume 11.4 fL (9.4-12.4); Red Blood Count 3.01 M/mcL (4.19-5.50); White Blood Count 4.1 K/mcL (4.3-11.1)
[2020-12-12 06:24] LABS: Alanine Aminotransferase 207 Units/L (7-52); Albumin 3.2 g/dL (3.5-5.7); Albumin/Globulin Ratio 1.5 (1.1-2.2); Alkaline Phosphatase 239 Units/L (34-104); Aspartate Amino Transferase 106 Units/L (13-39); BUN/Creatinine Ratio 19 (6-26); Bilirubin,Indirect 0.6 mg/dL (0.0-1.0); Bilirubin,Total 1.6 mg/dL (0.3-1.0); Blood Urea Nitrogen 23 mg/dL (8-23); Calcium 8.7 mg/dL (8.6-10.3); Carbon Dioxide 26 mEq/L (23-29); Chloride 110 mEq/L (98-107); Globulin 2.2 g/dL (2.4-3.5); Glucose 132 mg/dL (70-105); Magnesium 1.9 mg/dL (1.6-2.6); Osmolality,Calculated 298 (280-300); Potassium 3.8 mEq/L (3.5-5.1); Sodium 141 mEq/L (136-145); Total Protein 5.4 g/dL (6.4-8.9); eGFR For African Americans > 60 (> 60); eGFR For Non-African Americans 59 (> 60)
[2020-12-12 07:21] VITALS: BP 157/85
[2020-12-12] MEDS: risperiDONE 0.25 MG TABLET PO SCH (08:02)
[2020-12-12] MEDS: Aspirin 81 MG TAB.CHEW PO SCH (08:02)
[2020-12-12] MEDS: carvediloL 25 MG TABLET PO SCH (08:03)
[2020-12-12] MEDS: Insulin LISPRO 300 UNITS/3 ML VIAL SUBQ SCH (08:04)
== END 2020-12-12 14:24 | DRG 418 ==
LOC: 3BNU → SUATTDRO 14:41
PROVIDERS: ADMIT Internal Medicine; ATTEND Internal Medicine